=== PATIENT | male | born 1995 | race Caucasian/White ===

== ENCOUNTER 2024-05-05 18:50 | Inpatient (IN) | payer BC, MEDICAID ==
[2024-05-05] MEDS ORDERED: IBUPROFEN 600 MG TAB PO PRN (19:17)
[2024-05-05] MEDS ORDERED: MAG HYDROX/AL HYDROX/SIMETH 355 ML BOTTLE PO PRN (19:17)
[2024-05-05] MEDS ORDERED: MAGNESIUM HYDROXIDE 2,400 MG/30 ML CUP PO PRN (19:17)
[2024-05-06] MEDS: PRAZOSIN 1 MG CAP PO SCH (01:03)
[2024-05-06] MEDS: BACLOFEN 10 MG TAB PO SCH (01:03)
[2024-05-06] MEDS: GABAPENTIN 300 MG CAP PO SCH (01:03)
[2024-05-06] MEDS: traZODone HCL 100 MG TAB PO SCH (01:04)
[2024-05-06] MEDS: TEMAZEPAM 15 MG CAP PO SCH (01:04)
[2024-05-06 09:03] LABS: Basophils % (A) 0 %; Eosinophils % (A) 1 %; HCT 51.6 % (39.0-53.0); HGB 16.8 gm/dL (13.0-17.5); Lymphocytes # (A) 2.1 k/uL (1.0-4.8); Lymphocytes % (A) 26 %; MCH 31.9 pg (25.0-35.0); MCHC 32.4 g/dL (31.0-37.0); MCV 98.2 fL (80.0-100.0); Mean Platelet Volume 7.4; Monocytes # (A) 0.9 k/uL (0-1.0); Monocytes % (A) 11 %; Neutrophils # (A) 4.9 k/uL (1.3-7.7); Neutrophils % (A) 59 %; Platelet Count 250 k/uL (150-450); RBC 5.26 m/uL (4.30-5.90); RDW 14.2 % (11.5-15.5); WBC 8.2 k/uL (3.8-10.6)
[2024-05-06] MEDS: PANTOPRAZOLE 40 MG TABLET PO SCH (09:06)
[2024-05-06] MEDS: ETODOLAC 400 MG TAB PO SCH (09:07)
[2024-05-06] MEDS: lamoTRIgine 100 MG TAB PO SCH (09:10)
[2024-05-06] MEDS: IVABRADINE HCL 7.5 MG PO SCH ×2 (09:11→18:26)
[2024-05-06] MEDS: NICOTINE 14MG/24HR PATCH TRANSDERM SCH (09:12)
[2024-05-06] MEDS: PYRIDOSTIGMINE 60 MG TAB PO SCH (09:12)
[2024-05-06] MEDS: NON FORMULARY DRUG (Lisdexamfetamine Dimesylate [Vyvanse] 60 MG Capsule) PO SCH (09:12)
[2024-05-06] MEDS: NON FORMULARY DRUG (Dextroamphetamine/Amphetamine [Adderall Xr 20 Mg Capsule] 20 MG Cap.Er PO SCH (09:12)
[2024-05-06] MEDS: METOPROLOL TARTRATE 12.5 MG TAB PO SCH (09:12)
[2024-05-06] MEDS: SERTRALINE 50 MG TAB PO SCH (09:13)
[2024-05-06 09:54] LABS: ALT 30 U/L (4-49); AST 28 U/L (17-59); African American GFR (CKD) >90 (>60 ml/min/1.73 sqM); Albumin 5.3 g/dL (3.5-5.0); Alkaline Phosphatase 62 U/L (38-126); Anion Gap 12 mmol/L; Bilirubin, Delta 0.2 mg/dL (0.0-0.2); Bilirubin,Unconjugated 0.9 mg/dL (0.0-1.1); Blood Urea Nitrogen 16 mg/dL (9-20); Calcium 9.6 mg/dL (8.4-10.2); Carbon Dioxide 29 mmol/L (22-30); Chloride 101 mmol/L (98-107); Glucose 101 mg/dL (74-99); Non-African American GFR(CKD) >90 (>60 ml/min/1.73 sqM); Sodium 142 mmol/L (137-145); Total Bilirubin 1.1 mg/dL (0.2-1.3); Total Protein 8.8 g/dL (6.3-8.2)
[2024-05-06] MEDS: LORazepam 0.5 MG TAB PO PRN (10:28)
[2024-05-06] MEDS: Acetaminophen-Codeine 300-30mg TAB PO SCH (13:01)
[2024-05-06] MEDS: METHYLPHENIDATE HCL 10 MG TAB PO SCH (13:02)
[2024-05-06] MEDS: ONDANSETRON 4 MG TAB PO PRN (17:23)
[2024-05-06 17:39] LABS: Glucose,Whole Blood 94 mg/dL (70-110)
--- NOTE | 2024-05-06 18:46 | P.MDCNMH ---
History of Present Illness H&P Date: 05/06/24 Chief Complaint: medical consultation 28 year old man with history of joint pain and POTS presented as transfer from [facility] for MDD with SI. Medicine consulted for medical management. Pt had A-team called due to episode of dizziness/lightheadedness while taking ahot shower. Apparently, patient felt he was going to pass out so he sat himself down in the shower. This has happened in the past and he typically is able to identify that he needs to sit or lay down before having a fall. Similarly, this episode, the patient was able to place himself into a sitting position without falling or hitting his head. Patient's home medication of ivabradine apparently has not been delivered to the patient while at [facility], and this medication typically helps him with his POTS. At the time of my evaluation, patient was doing well, with no symptoms of cp, palps, diaphoresis, lightheadedness, or dizziness. Patient is HDS, 130/85, HR went to a maximum of 120 as recorded by nursing, and went down without intervention to 78. CBC, BMP, LFTs, TSH, and A1c are reviewed and unremarkable. All Systems reviewed and pertinent positives and negatives noted in HPI, all other symptoms are negative Gen: in no apparent distress, resting comfortably in wheelchair Eyes: Extraocular movement intact HENT: normocephalic, atraumatic, good hearing acuity, moist mucous membranes Neck: no tracheal deviation, full range of motion Resp: good air exchange, breathing comfortably with no accessory muscle use, CVS: good distal perfusion x 4, no pitting edema MSK: no clubbing, no cyanosis, no noted contractures of extremities Skin: no noted rashes, petechiae; temperature of skin is appropriate Neuro: moving all extremities without signs of weakness, CN II-XII intact Psych: cooperative, euthymic mood, insight and judgment intact Assessment/plan: Postural orthostatic tachycardia syndrome -Recommend resumption of home metoprolol, ivabradine -Recommend providing patient an option to be seated while in the shower -Hot showers can cause significant vasodilation leading to dizziness, tachy cardia -This patient is medically stable and I do not think warrants transfer to the medical floor at this time -EKG ordered Major depressive disorder with suicidal ideation Anxiety -Care per primary team ADHD -home Adderall was substituted with ritalin per psychiatry Chronic joint pain -Resume gabapentin, Tylenol 3, baclofen -tylenol PRN was ordered by psychiatry, please limit to max of 3-4g of acetaminophen/day Thank you for this consult, please reach out if there are any other questions or concerns Past Medical History Past Medical History: GERD/Reflux Additional Past Medical History / Comment(s): Per patient, Dysautonomia, POTS, Neuropathy, Hypermobility History of Any Multi-Drug Resistant Organisms: None Reported Past Surgical History: Breast Surgery Additional Past Surgical History / Comment(s): FTM Top Surgery Past Anesthesia/Blood Transfusion Reactions: No Reported Reaction Smoking Status: Never smoker Medications and Allergies Home Medications Medication Instructions Recorded Confirmed Type Baclofen 10 mg PO TID 05/05/24 05/05/24 History Dextroamphetamine/Amphetamine 20 mg PO DAILY 05/05/24 05/05/24 History [Adderall Xr 20 mg Capsule] Diclofenac Sodium [Voltaren] 75 mg PO BID 05/05/24 05/05/24 History Eszopiclone [Lunesta] 2 mg PO HS 05/05/24 05/05/24 History Gabapentin 300 mg PO TID 05/05/24 05/05/24 History Ivabradine HCl [Corlanor] 7.5 mg PO BID 05/05/24 05/05/24 History Lisdexamfetamine Dimesylate 60 mg PO QAM 05/05/24 05/05/24 History [Vyvanse] Metoprolol Tartrate [Lopressor] 12.5 mg PO BID 05/05/24 05/05/24 History Pantoprazole Sodium [Protonix] 40 mg PO DAILY 05/05/24 05/05/24 History Prazosin [Minipress] 3 mg PO HS 05/05/24 05/05/24 History Pyridostigmine [Mestinon] 30 mg PO BID 05/05/24 05/05/24 History Sertraline HCl [Zoloft] 175 mg PO DAILY 05/05/24 05/05/24 History lamoTRIgine [LaMICtal] 150 mg PO BID 05/05/24 05/05/24 History ondansetron HCL [Ondansetron HCl] 8 mg PO BID PRN 05/05/24 05/05/24 History traZODone HCL 200 mg PO HS 05/05/24 05/05/24 History Acetaminophen-Codeine 300-30mg 1 tab PO BID 05/06/24 05/06/24 History [Tylenol w/codeine #3] LORazepam [Ativan] 0.5 mg PO TID PRN 05/06/24 05/06/24 History Allergies Allergy/AdvReac Type Severity Reaction Status Date / Time amoxicillin Allergy Rash/Hives Verified 05/05/24 23:00 methylprednisolone Allergy Anaphylaxis Verified 05/05/24 23:00 propranolol Allergy Hallucinati Verified 05/05/24 23:00 ons diltiazem [From Cardizem] AdvReac Hypotension Verified 05/05/24 23:00 Physical Exam Osteopathic Statement: *. No significant issues noted on an osteopathic structural exam other than those noted in the History and Physical/Consult. Vitals: Vital Signs Temp Pulse Resp BP Pulse Ox 05/06/24 17:30 24 05/06/24 09:19 120 H 18 130/85 05/05/24 22:58 98.1 F 84 18 131/73 99 Cranial Nerve Examination - Cranial Nerves Cranial Nerve II- Optic: Intact Cranial Nerve III- Oculomotor: Intact Cranial Nerve IV- Trochlear: Intact Cranial Nerve V- Trigeminal: Intact Cranial Nerve - Abducens: Intact Cranial Nerve VII- Facial: Intact Cranial Nerve VIII- Auditory: Intact Cranial Nerve IX- Glossopharyngeal: Intact Cranial Nerve X- Vagus: Intact Cranial Nerve XI- Accessory: Intact Cranial Nerve XII- Hypoglossal: Intact Results CBC & Chem 7: 05/06/24 08:18 05/06/24 08:18 Labs: Abnormal Lab Results - Last 24 Hours (Table) 05/06/24 Range/Units 08:18 Glucose 101 H (74-99) mg/dL Total Protein 8.8 H (6.3-8.2) g/dL Albumin 5.3 H (3.5-5.0) g/dL
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
[2024-05-06 21:01] LABS: Chol/HDL Ratio 5.61 Ratio; LDL Cholesterol,Calculated 190.1 mg/dL (0.0-131.0)
--- NOTE | 2024-05-07 14:03 | P.PN ---
Progress Note - Text Progress Note Date: 05/07/24 Interval History: Patient was seen on his bed, and was directable and agreeable to speak with wr iter in the office. Patient stated they had a really rough week, last week, and everything was just too much. After waiting over a year to see a specialist for POTS, the patient feels that it was all too much for him. He was having suicidal thoughts, no action or plan. He states at this time, he is feeling that he is back at baseline. He is not having any suicidal thoughts, and is no longer feeling depressed. He states that he is sleeping well at night. At this time patient denies any suicidal or homicidal ideations, intent or plan. Patient denies any auditory, visual hallucinations and denies any paranoia or delusions. Patient denies any side effects from the medications and has been compliant with meds. Patient was fairly focused on discharge, claims that he is "back to myself". He was however fairly guarded about the team getting in contact with his parents for a ride back home. MENTAL STATUS EXAM: General Appearance: Patient appears to be mildly overweight, wearing glasses, st ated age. Patient appears to have fair hygiene and grooming. Using a wheelchair. Behavior: Patient is seated without any agitated behavior. Speech: Patient's speech is fluent and non-pressured. Mood/Affect: Patient reports their mood is good, affect is congruent and constricted. improving Suicidality/Homicidality: Patient denies having any homicidal ideation intent or plan. Denies any suicidal ideations, intent or plan. Perceptions: Patient denies any visual hallucinations and denies any auditory hallucinations Though content/process: There is no evidence of any delusional thought content and thought process is linear and goal-directed. Focused on discharge. Memory and concentration: AOX3, grossly intact for the purposes of this session. Judgment and insight: fair IMPRESSIONS: MDD, recurrent, mild R/O Adjustment disorder R/O Borderline traits OCD ADHD PTSD Gender dysphoria PLAN: -Patient is admitted under petition/cert for transfer from [facility] to [facility] for stabilization of psychiatric symptoms and safety. Patient has signed adult voluntary form and medication consent and is placed in patient's chart. -Medications: Lamictal 150 mg BID for mood, Minipress 3 mg QHS for PTSD/nightmares, Zoloft 175 mg daily for depression/anxiety, Trazodone 200 mg QHS for sleep. Gabapentin 300mg tid for nerve pain, Restoril 15 mg QHS for sleep A short-term supply of his Corlanor 7.5 mg BID POTS medication was obtained from a local outpatient pharmacy -Ativan and Haldol PRN for agitation/aggression -NRT - not needed, nonsmoker. -SW on board for discharge planning. Encourage patient to participate in groups to work on coping skills. likely discharge tomorrow if patient is agreeable to have SW call parents and ensure safety and coordinate d/c.
[2024-05-07] MEDS: ACETAMINOPHEN TAB 325 MG TAB PO PRN (14:11)
[2024-05-07] MEDS: SENNOSIDES-DOCUSATE SODIUM 1 EACH TAB PO SCH (14:55)
[2024-05-07] MEDS: IVABRADINE HCL 7.5 MG PO SCH (14:55)
[2024-05-07] MEDS: PYRIDOSTIGMINE 60 MG TAB PO SCH (14:55)
[2024-05-07] MEDS: METOPROLOL TARTRATE 12.5 MG TAB PO SCH (14:57)
[2024-05-07] MEDS: SODIUM CHLORIDE TAB 1 GM TAB PO SCH (14:57)
[2024-05-07] MEDS ORDERED: SODIUM CHLORIDE TAB 1 GM TAB PO SCH (21:00)
[2024-05-08 06:59] VITALS: TEMP 97.9
--- NOTE | 2024-05-08 11:17 | P.DS ---
Providers Date of admission: 05/05/24 22:12 Expected date of discharge: 05/08/24 Attending physician: Gray Bolaños MD Consults: 05/05/24 19:17 Consult Physician Routine Consulting Provider: Dalia Baron Consult Reason/Comments: History and Physical, New Admission Do you want consulting provider notified?: Yes Primary care physician: Stated None - Discharge Diagnosis(es) (1) Major depressive disorder, recurrent Current Visit: Yes Status: Acute Priority: High (2) ADHD Current Visit: Yes Status: Acute Priority: Medium (3) PTSD (post-traumatic stress disorder) Current Visit: Yes Status: Acute Priority: Medium Hospital Course: Admission HPI: Admission note was completed by Dr Ewing "At around 5:30 pm this evening, patient had an episode of shortness of breath, dizziness, weakness, tachycardia, and nausea from POTS, causing him to lower himself to the ground after getting out of the shower. Nurses were alerted by another patient that patient was on the ground in the hallway and responded immediately. He did not fall or hit his head or any other body part. Vitals were taken, HR was 133. Nurses alerted me, and on my evaluation patient appeared weak, flushed in the face, was breathing deeply and attempting to catch his breath. His HR improved from 130s to 120s. He had been without his prescription Corlanor (Ivabradine) from Tuesday since this medication is non-formulary at [facility] and [facility], which our nurse messaged to the on-call medical doctor this morning but they had not seen patient yet today for his admission H&P. I asked our nurse to contact a local outpatient pharmacy to fill an emergency script of Corlanor 7.5 mg BID and a staff person was sent to that pharmacy to diamond picker the med before it closed at 6pm. Nurses also called an A-team medical alert and team arrived to evaluate patient. Medical doctor arrived to evaluate patient and determined patient did not need to go to the medical floor since his heart rate was trending down. Patient's medication arrived from the outpatient pharmacy and patient was given the nighttime dose of Corlanor. He continued to feel weak and nauseous so he missed dinner and was also provided with a wheelchair to minimize his fall risk. Patient's room was changed to closer to the nurse's station so he can be closely monitored. He was also provided with a bedside rosario to ring for the nurse if he were to feel weak or if needed to assistance to use the bathroom etc. He gradually returned to baseline after about ~1.5 hours. I assessed patient after his POTS episode had resolved. He reports frustration that his medication was not formulary but is thankful that steps were taken tonight by our staff to obtain his medication from an outpatient pharmacy.Patient had presented to our inpatient unit as a transfer from [facility] due to suicidal ideation. He reports he has had passive suicidal thoughts for the last year, and reports these have worsened to for frequent suicidal thoughts and suicidal thoughts with plan but no intent more intensely on Tuesday. He went to see his want ad supervisor at [facility] who helped him get to the ER for a psychiatric evaluation for suicidal ideation with plan to overdose on Lunesta, benzos and blood pressure meds. He went to see a POTS specialist in [place] and they recommended a new therapy of mast cell activation and plans to start that in the near future. He felt this medical appointment in [place] was stressful, going there, not ge tting definite answers, it felt frustrating. He reports his [employer] INTERN recently increased his Zoloft from 150 mg daily to 175 mg daily about one week ago. When asked about increasing the Zoloft to 200 mg daily for today, he states he doesn't want to change his meds because his body is so sensitive to medication adjustments due to the POTS and his other comorbidities. He feels the Zoloft helps his PTSD and anxiety and depression, as compared to other psychiatric meds he has tried. He denies depressed mood today, reports he was feeling depressed yesterday and the day before. Patient denies any suicidal or homicidal ideation, intent or plan, at this time but was considering suicide plans on the day he went to the [facility] ER. At this time patient denies any auditory or visual hallucinations. Patient denies any flight of ideas racing thoughts and increased in goal directed behavior. Patient denies any drug or alcohol use. He prefers to not change his home medications at this time. He states the week he had a mental health crisis and now this crisis has resolved between Tuesday when he presented to the ER at [facility] and now. " Hospital course: Upon admission to the unit patient was directable and agreeable to commence treatment and signed adult voluntary form. Patient got along well with other patients on the unit and followed unit protocol. Patient was compliant with the medications and denied any side effects throughout hospital course. Patient was started on home dose of Lamictal 150 mg twice daily for mood stabilization, Minipress 3 mg nightly for PTSD/nightmares, Zoloft 175 mg daily for mood/anxiety, trazodone 200 mg nightly for sleep/mood, resumed on home dose of gabapentin 300 mg 3 times daily for nerve pain.. Patient spoke of their stressors and engaged in therapy both group and individual. Patient was also seen by medical team for history and physical exam. Throughout the course of the hospitalization patient gradually improved with regards to mood, anxiety, suicidal thoughts, sleep and returned back to their baseline level of functioning. On the day of discharge patient denied any suicidal or homicidal ideations intent or plan denied any auditory or visual hallucinations. Patient endorsed wanting to live for their health and future. The patient denied any access to guns or weapons. Patient denied any paranoia and did not endorse any delusions. Patient does not have a significant history of substance abuse and was counseled on abstaining from all substances including alcohol and marijuana. Patient was also counseled on the medications and need for regular compliance and was encouraged to follow-up with their outpatient appointment for mental health and also for primary care. Prior to discharge SW will reach out to patients friend who he will be staying with to answer any questions and ensure safety upon discharge. Mental status exam: General Appearance: Patient appears to be overweight, wearing glasses, stated age is alert, pleasant, and cooperative. Patient is in no acute distress and has improved hygiene and grooming Behavior: Patient is calmly seated without any agitated behavior. Speech: Patient's speech is fluent and nonpressured. Mood/Affect: Patient reports their mood is "good", affect is congruent and euthymic. Suicidality/Homicidality: Patient denies having any suicidal or homicidal ideation intent or plan. Perceptions: Patient denies any auditory or visual hallucinations. Though content/process: There is no evidence of any delusional thought content and thought process is linear and goal-directed. More future oriented Memory and concentration: AOX3, grossly intact for the purposes of this session. Can spell "WORLD" backwards correctly. Judgment and insight: improved with guarded prognosis Impression: MDD, recurrent R/O Borderline traits ADHD PTSD Plan: -Continue with discharge today as patient has improved and stabilized psychiatrically and is not currently an imminent threat to themselves and/or others. Patient will remain at chronically elevated risk for harm to self and/or others due to their impulsivity. -Continue medications: Lamictal 150 mg twice daily for mood stabilization, Minipress 3 mg nightly for PTSD/nightmares, Zoloft 175 mg daily for mood/anxiety, trazodone 200 mg nightly for sleep/mood, gabapentin 300 mg 3 times daily for nerve pain. -Patient was counseled on the need for medication compliance and appropriate follow-up at mental health and also primary care for medical issues. Patient verbalized understanding and agreed. -Social work to help coordinate patient's discharge today, patient states that they will be able to stay with a friend and SW to call and confirm this and also arrange for pi\\ck up. social work also to arrange for patients follow up appointments for psychiatric care along with follow up with primary care provider. -Patient counseled on abstaining from recreational drugs and marijuana and alcohol. Was informed/educated on the adverse effects on their physical and mental health. Patient verbally agreed and understood. -Patient was instructed to return to the hospital or seek immediate medical care if their psychiatric or medical symptoms do worsen or reoccur. Allergies Allergy/AdvReac Type Severity Reaction Status Date / Time amoxicillin Allergy Rash/Hives Verified 05/07/24 15:27 methylprednisolone Allergy Anaphylaxis Verified 05/07/24 15:27 propranolol Allergy Hallucinati Verified 05/07/24 15:27 ons diltiazem from Cardizem AdvReac Hypotension Verified 05/07/24 15:27 Laboratory Results WBC 8.2 k/uL (3.8-10.6) 05/06/24 08:18 RBC 5.26 m/uL (4.30-5.90) 05/06/24 08:18 Hgb 16.8 gm/dL (13.0-17.5) 05/06/24 08:18 Hct 51.6 % (39.0-53.0) 05/06/24 08:18 MCV 98.2 fL (80.0-100.0) 05/06/24 08:18 MCH 31.9 pg (25.0-35.0) 05/06/24 08:18 MCHC 32.4 g/dL (31.0-37.0) 05/06/24 08:18 RDW 14.2 % (11.5-15.5) 05/06/24 08:18 Plt Count 250 k/uL (150-450) 05/06/24 08:18 MPV 7.4 05/06/24 08:18 Neutrophils % 59 % 05/06/24 08:18 Lymphocytes % 26 % 05/06/24 08:18 Monocytes % 11 % 05/06/24 08:18 Eosinophils % 1 % 05/06/24 08:18 Basophils % 0 % 05/06/24 08:18 Neutrophils # 4.9 k/uL (1.3-7.7) 05/06/24 08:18 Lymphocytes # 2.1 k/uL (1.0-4.8) 05/06/24 08:18 Monocytes # 0.9 k/uL (0-1.0) 05/06/24 08:18 Eosinophils # 0.0 k/uL (0-0.7) 05/06/24 08:18 Basophils # 0.0 k/uL (0-0.2) 05/06/24 08:18 Sodium 142 mmol/L (137-145) 05/06/24 08:18 Potassium 4.0 mmol/L (3.5-5.1) 05/06/24 08:18 Chloride 101 mmol/L (98-107) 05/06/24 08:18 Carbon Dioxide 29 mmol/L (22-30) 05/06/24 08:18 Anion Gap 12 mmol/L 05/06/24 08:18 BUN 16 mg/dL (9-20) 05/06/24 08:18 Creatinine 0.95 mg/dL (0.66-1.25) 05/06/24 08:18 Est GFR (CKD-EPI)AfAm >90 (>60 ml/min/1.73 sqM) 05/06/24 08:18 Est GFR (CKD-EPI)NonAf >90 (>60 ml/min/1.73 sqM) 05/06/24 08:18 Glucose 101 mg/dL (74-99) H 05/06/24 08:18 POC Glucose (mg/dL) 94 mg/dL (70-110) 05/06/24 17:30 POC Glu Subassembler ID Curtis Jaramillo 05/06/24 17:[address] Glu mg/dL 108 mg/dL 05/06/24 08:18 Hemoglobin A1c 5.4 % (<=6.0) 05/06/24 08:18 Calcium 9.6 mg/dL (8.4-10.2) 05/06/24 08:18 Total Bilirubin 1.1 mg/dL (0.2-1.3) 05/06/24 08:18 Conjugated Bilirubin 0.0 mg/dL (0.0-0.3) 05/06/24 08:18 Unconjugated Bilirubin 0.9 mg/dL (0.0-1.1) 05/06/24 08:18 Delta Bilirubin 0.2 mg/dL (0.0-0.2) 05/06/24 08:18 AST 28 U/L (17-59) 05/06/24 08:18 ALT 30 U/L (4-49) 05/06/24 08:18 Alkaline Phosphatase 62 U/L (38-126) 05/06/24 08:18 Total Protein 8.8 g/dL (6.3-8.2) H 05/06/24 08:18 Albumin 5.3 g/dL (3.5-5.0) H 05/06/24 08:18 Triglycerides 130.00 mg/dL (0.00-149.00) 05/06/24 08:18 Cholesterol 263.00 mg/dL (0.00-200.00) H 05/06/24 08:18 LDL Cholesterol, Calc 190.1 mg/dL (0.0-131.0) H 05/06/24 08:18 VLDL Cholesterol, Calc 26.00 mg/dL (5.00-40.00) 05/06/24 08:18 HDL Cholesterol 46.90 mg/dL (40.00-60.00) 05/06/24 08:18 Cholesterol/HDL Ratio 5.61 Ratio 05/06/24 08:18 TSH 2.520 mIU/L (0.465-4.680) 05/06/24 08:18 Vital Signs Temp 97.9 F 05/08/24 06:59 Pulse 127 H 11/05/24 08:00 Resp 16 05/08/24 06:59 BP 118/72 05/08/24 06:59 Pulse Ox 96 05/08/24 06:59 FiO2 Patient Condition at Discharge: Stable Plan - Discharge Summary Discharge Rx Participant: No New Discharge Prescriptions: New Sennosides-Docusate Sodium [Senokot-S] 1 each PO DAILY 30 Days #30 tab Sertraline [Zoloft] 175 mg PO DAILY 14 Days #50 tab Prazosin [Minipress] 3 mg PO HS 14 Days #42 cap Ibuprofen [Motrin] 600 mg PO Q6HR PRN tab PRN Reason: Moderate Pain (Scale 4 To 6) Continue Ivabradine HCl [Corlanor] 7.5 mg PO BID Metoprolol Tartrate [Lopressor] 12.5 mg PO BID Gabapentin 300 mg PO TID Baclofen 10 mg PO TID Diclofenac Sodium [Voltaren] 75 mg PO BID Pantoprazole Sodium [Protonix] 40 mg PO DAILY Sodium Chloride Tab 2 gm PO BID Cyanocobalamin [Vitamin B-12 Injection] 1,000 mcg SQ Q30D Cetirizine HCl [Zyrtec] 10 mg PO DAILY traZODone HCL 200 mg PO HS 14 Days #28 tab Pyridostigmine [Mestinon] 30 mg PO BID lamoTRIgine [LaMICtal] 150 mg PO BID Acetaminophen-Codeine 300-30mg [Tylenol w/codeine #3] 1 tab PO BID Testosterone Cypionate [Depo-Testosterone] 100 mg IM FR Ergocalciferol (Vitamin D2) [Drisdol (50,000 Iu)] 1,250 mcg PO WE Discontinued Lisdexamfetamine Dimesylate [Vyvanse] 60 mg PO DAILY Sertraline [Zoloft] 100 mg PO DAILY Sertraline [Zoloft] 25 mg PO DAILY Dextroamphetamine/Amphetamine [Adderall] 20 mg PO DAILY@1500 Sertraline HCl [Zoloft] 50 mg PO DAILY Prazosin [Minipress] 1 mg PO HS Eszopiclone [Lunesta] 2 mg PO HS LORazepam [Ativan] 0.5 mg PO TID PRN PRN Reason: Anxiety Prazosin HCl [Minipress] 2 mg PO HS Discharge Medication List Baclofen 10 mg PO TID 05/05/24 [History] Diclofenac Sodium [Voltaren] 75 mg PO BID 05/05/24 [History] Gabapentin 300 mg PO TID 05/05/24 [History] Ivabradine HCl [Corlanor] 7.5 mg PO BID 05/05/24 [History] Metoprolol Tartrate [Lopressor] 12.5 mg PO BID 05/05/24 [History] Pantoprazole Sodium [Protonix] 40 mg PO DAILY 05/05/24 [History] Pyridostigmine [Mestinon] 30 mg PO BID 05/05/24 [History] lamoTRIgine [LaMICtal] 150 mg PO BID 05/05/24 [History] Acetaminophen-Codeine 300-30mg [Tylenol w/codeine #3] 1 tab PO BID 05/06/24 [History] Cetirizine HCl [Zyrtec] 10 mg PO DAILY 05/07/24 [History] Cyanocobalamin [Vitamin B-12 Injection] 1,000 mcg SQ Q30D 05/07/24 [History] Ergocalciferol (Vitamin D2) [Drisdol (50,000 Iu)] 1,250 mcg PO WE 05/07/24 [History] Sodium Chloride Tab 2 gm PO BID 05/07/24 [History] Testosterone Cypionate [Depo-Testosterone] 100 mg IM FR 05/07/24 [History] Ibuprofen [Motrin] 600 mg PO Q6HR PRN tab 05/08/24 [Rx] Prazosin [Minipress] 3 mg PO HS 14 Days #42 cap 05/08/24 [Rx] Sennosides-Docusate Sodium [Senokot-S] 1 each PO DAILY 30 Days #30 tab 05/08/24 [Rx] Sertraline [Zoloft] 175 mg PO DAILY 14 Days #50 tab 05/08/24 [Rx] traZODone HCL 200 mg PO HS 14 Days #28 tab 05/08/24 [Rx] Follow up Appointment(s)/Referral(s): [facility] [Other] - 05/18/24 2:00 pm Activity/Diet/Wound Care/Special Instructions: Avoid the use of street drugs and alcohol. Take all medications as prescribed. When you are in need of refills on your medications, please contact your medical provider and/or outpatient psychiatrist/provider to have this done. Please go to your scheduled outpatient appointment for aftercare treatment. If symptoms return or become worse, call the crisis line at and/or go to the nearest emergency room for evaluation. National Suicide Hotline 988 Discharge Disposition: HOME SELF-CARE
[2024-05-08] MEDS: LORazepam 0.5 MG TAB PO STA (12:46)
[2024-05-08 15:28] VITALS: BP 106/69; PULSE 127; RESP 24
[2024-05-08 15:55] VITALS: BMI 41.8
== END 2024-05-08 15:57 | disposition home or self-care (01) | DRG 885 ==
LOC: 3MHU 22:12
PROVIDERS: ADMIT Psychiatry & Neurology Psychiatry; ATTEND Psychiatry & Neurology Psychiatry
DX: F33.0 Major depressive disorder, recurrent, mild (principal); R45.851 Suicidal ideations; F41.9 Anxiety disorder, unspecified; F42.9 Obsessive-compulsive disorder, unspecified; F43.10 Post-traumatic stress disorder, unspecified; F64.0 Transsexualism; M79.18 Myalgia, other site; R00.0 Tachycardia, unspecified; F90.9 Attention-deficit hyperactivity disorder, unspecified type; G89.29 Other chronic pain; G90.A Postural orthostatic tachycardia syndrome [POTS]; Y09 Assault by unspecified means; Z62.810 Personal history of physical and sexual abuse in childhood; Z79.899 Other long term (current) drug therapy; Z91.51 Personal history of suicidal behavior; Z91.81 History of falling; Z88.1 Allergy status to other antibiotic agents; Z88.8 Allergy status to other drugs, medicaments and biological substances
CPT/HCPCS: 80053; 80061; 82248; 83036; 84443; 85025

== ENCOUNTER 2024-05-08 15:26 | Observation (INO) | payer BC, OTHER ==
[2024-05-08] MEDS ORDERED: ONDANSETRON 4 MG/2 ML VIAL IVP PRN (15:48)
[2024-05-08] MEDS ORDERED: NALOXONE 0.4 MG/ML 1 ML VIAL IV PRN (15:48)
[2024-05-08] MEDS ORDERED: ACETAMINOPHEN TAB 325 MG TAB PO PRN (15:48)
[2024-05-08 16:32] LABS: Basophils % (A) 0 %; Eosinophils % (A) 0 %; HCT 46.8 % (39.0-53.0); HGB 14.8 gm/dL (13.0-17.5); Lymphocytes # (A) 1.8 k/uL (1.0-4.8); Lymphocytes % (A) 17 %; MCHC 31.6 g/dL (31.0-37.0); MCV 98.1 fL (80.0-100.0); Monocytes % (A) 9 %; Neutrophils # (A) 7.2 k/uL (1.3-7.7); Neutrophils % (A) 70 %; Platelet Count 247 k/uL (150-450); RBC 4.76 m/uL (4.30-5.90); RDW 13.6 % (11.5-15.5); WBC 10.3 k/uL (3.8-10.6)
[2024-05-08 16:41] LABS: African American GFR (CKD) >90 (>60 ml/min/1.73 sqM); Anion Gap 7 mmol/L; Blood Urea Nitrogen 12 mg/dL (9-20); Calcium 9.3 mg/dL (8.4-10.2); Carbon Dioxide 29 mmol/L (22-30); Chloride 104 mmol/L (98-107); Glucose 76 mg/dL (74-99); Magnesium 2.2 mg/dL (1.6-2.3); Non-African American GFR(CKD) >90 (>60 ml/min/1.73 sqM); Phosphorus 3.1 mg/dL (2.5-4.5); Potassium 4.1 mmol/L (3.5-5.1); Sodium 140 mmol/L (137-145)
--- NOTE | 2024-05-08 17:50 | P.HPIM ---
History of Present Illness H&P Date: 05/08/24 Chief Complaint: Tachycardia 28-year-old male with medical history of major depressive disorder with suicidal ideation who was recently hospitalized for his mental health. Patient was transferred here from the mental health floor due to concerns over tachycardia. I saw and evaluated this patient on the medical floor, at which time he had no complaints. Upon evaluation, patient is hemodynamically stable, no longer tachycardic with heart rates in the 70s. Patient stat labs demonstrated normal CBC and normal basic metabolic panel. His all medications were resumed. Cardiology was consulted. All Systems reviewed and pertinent positives and negatives noted in HPI, all other symptoms are negative Gen: In NAD, non-toxic HEENT: normocephalic, atraumatic, hearing acuity is intant, mucous membranes moist CVS: perfusing all extremities well, no pitting edema, Respiratory: symmetric chest expansion, no accessory muscle use, GI: soft, NTTP, ND, : no suprapubic tenderness, no CVA tenderness MSK/Derm: no rashes, cyanosis Neuro: CN II-XII intact, no motor weakness, Psych: cooperative, euthymic mood, judgment and insight is intact Labs and imaging as above Assessment/plan: Tachycardia, possibly POTS -Cardiology consult -Telemetry -EKG -IV fluids -Resume home meds Major depressive disorder with suicidal ideation -Psychiatry consulted, apparently patient was discharged from their service as he was deemed stable from mental health standpoint Patient is full code Past Medical History Past Medical History: GERD/Reflux Additional Past Medical History / Comment(s): Per patient, Dysautonomia, POTS, Neuropathy, Hypermobility, heart murmur, inappropriate sinus tachy History of Any Multi-Drug Resistant Organisms: None Reported Past Surgical History: Breast Surgery Additional Past Surgical History / Comment(s): FTM Top Surgery Past Anesthesia/Blood Transfusion Reactions: No Reported Reaction Smoking Status: Never smoker - Past Family History Mother Family Medical History: No Reported History Medications and Allergies Home Medications Medication Instructions Recorded Confirmed Type Baclofen 10 mg PO TID 05/05/24 05/07/24 History Diclofenac Sodium [Voltaren] 75 mg PO BID 05/05/24 05/07/24 History Gabapentin 300 mg PO TID 05/05/24 05/07/24 History Ivabradine HCl [Corlanor] 7.5 mg PO BID 05/05/24 05/07/24 History Metoprolol Tartrate [Lopressor] 12.5 mg PO BID 05/05/24 05/07/24 History Pantoprazole Sodium [Protonix] 40 mg PO DAILY 05/05/24 05/07/24 History Pyridostigmine [Mestinon] 30 mg PO BID 05/05/24 05/07/24 History lamoTRIgine [LaMICtal] 150 mg PO BID 05/05/24 05/07/24 History Acetaminophen-Codeine 300-30mg 1 tab PO BID 05/06/24 05/07/24 History [Tylenol w/codeine #3] Cetirizine HCl [Zyrtec] 10 mg PO DAILY 05/07/24 05/07/24 History Cyanocobalamin [Vitamin B-12 1,000 mcg SQ Q30D 05/07/24 05/07/24 History Injection] Ergocalciferol (Vitamin D2) 1,250 mcg PO WE 05/07/24 05/07/24 History [Drisdol (50,000 Iu)] Sodium Chloride Tab 2 gm PO BID 05/07/24 05/07/24 History Testosterone Cypionate 100 mg IM FR 05/07/24 05/07/24 History [Depo-Testosterone] Ibuprofen [Motrin] 600 mg PO Q6HR PRN tab 05/08/24 Rx Prazosin [Minipress] 3 mg PO HS 14 Days #42 cap 05/08/24 Rx Sennosides-Docusate Sodium 1 each PO DAILY 30 Days #30 tab 05/08/24 Rx [Senokot-S] Sertraline [Zoloft] 175 mg PO DAILY 14 Days #50 tab 05/08/24 Rx traZODone HCL 200 mg PO HS 14 Days #28 tab 05/08/24 Rx Allergies Allergy/AdvReac Type Severity Reaction Status Date / Time amoxicillin Allergy Rash/Hives Verified 05/07/24 15:27 methylprednisolone Allergy Anaphylaxis Verified 05/07/24 15:27 propranolol Allergy Hallucinati Verified 05/07/24 15:27 ons diltiazem [From Cardizem] AdvReac Hypotension Verified 05/07/24 15:27 Physical Exam Osteopathic Statement: *. No significant issues noted on an osteopathic structural exam other than those noted in the History and Physical/Consult. Vitals: Intake and Output 05/08/24 05/08/24 05/08/24 06:59 14:59 22:59 Other: Weight 115.666 kg Results CBC & Chem 7: 05/08/24 16:22 05/08/24 16:22
[2024-05-08] MEDS: BACLOFEN 10 MG TAB PO SCH (18:10)
[2024-05-08] MEDS: GABAPENTIN 300 MG CAP PO SCH (18:10)
[2024-05-08] MEDS: SODIUM CHLORIDE 0.9% 1,000 ML IV SCH (18:12)
[2024-05-08 19:15] LABS: Appearance,Urine Clear (Clear); Bilirubin,Urine Negative (Negative); Blood,Urine Negative (Negative); Color,Urine Colorless; Glucose,Urine (UA) Negative (Negative); Ketones,Urine Negative (Negative); Leukocyte Esterase,Urine Negative (Negative); Nitrite,Urine Negative (Negative); PH, Urine 6.5 (5.0-8.0); Protein,Urine Negative (Negative); Specific Gravity,Urine 1.006 (1.001-1.035); Urobilinogen,Urine <2.0 mg/dL (<2.0)
[2024-05-08 20:06] VITALS: BP 144/76; PULSE 73; RESP 17; TEMP 98.3
[2024-05-08] MEDS ORDERED: traZODone HCL 100 MG TAB PO SCH (21:00)
[2024-05-08] MEDS ORDERED: ETODOLAC 400 MG TAB PO SCH (21:00)
[2024-05-08] MEDS ORDERED: Acetaminophen-Codeine 300-30mg TAB PO SCH (21:00)
[2024-05-08] MEDS ORDERED: lamoTRIgine 100 MG TAB PO SCH (21:00)
[2024-05-08] MEDS ORDERED: PRAZOSIN 1 MG CAP PO SCH (21:00)
--- NOTE | 2024-05-09 07:39 | P.DS ---
Providers Date of admission: 05/08/24 15:50 Expected date of discharge: 05/09/24 Attending physician: Fabiola Mancera MD Consults: 05/08/24 15:50 Consult Physician Routine Consulting Provider: Gray Bolaños Consult Reason/Comments: MDD with SI Do you want consulting provider notified?: Yes Consult Physician Routine Consulting Provider: Saran Alberto Consult Reason/Comments: ? POTS history and medication regiment Do you want consulting provider notified?: Yes Primary care physician: Stated None Hospital Course: Patient left AMA prior to being seen. Plan - Discharge Summary New Discharge Prescriptions: No Action Ivabradine HCl [Corlanor] 7.5 mg PO BID Metoprolol Tartrate [Lopressor] 12.5 mg PO BID Gabapentin 300 mg PO TID Baclofen 10 mg PO TID Diclofenac Sodium [Voltaren] 75 mg PO BID Pantoprazole Sodium [Protonix] 40 mg PO DAILY Sodium Chloride Tab 2 gm PO BID Cyanocobalamin [Vitamin B-12 Injection] 1,000 mcg SQ Q30D Cetirizine HCl [Zyrtec] 10 mg PO DAILY Sennosides-Docusate Sodium [Senokot-S] 1 each PO DAILY 30 Days #30 tab Sertraline [Zoloft] 175 mg PO DAILY 14 Days #50 tab traZODone HCL 200 mg PO HS 14 Days #28 tab Pyridostigmine [Mestinon] 30 mg PO BID lamoTRIgine [LaMICtal] 150 mg PO BID Acetaminophen-Codeine 300-30mg [Tylenol w/codeine #3] 1 tab PO BID Testosterone Cypionate [Depo-Testosterone] 100 mg IM FR Ergocalciferol (Vitamin D2) [Drisdol (50,000 Iu)] 1,250 mcg PO WE Prazosin [Minipress] 3 mg PO HS 14 Days #42 cap Ibuprofen [Motrin] 600 mg PO Q6HR PRN tab PRN Reason: Moderate Pain (Scale 4 To 6) Discharge Medication List Baclofen 10 mg PO TID 05/05/24 [History] Diclofenac Sodium [Voltaren] 75 mg PO BID 05/05/24 [History] Gabapentin 300 mg PO TID 05/05/24 [History] Ivabradine HCl [Corlanor] 7.5 mg PO BID 05/05/24 [History] Metoprolol Tartrate [Lopressor] 12.5 mg PO BID 05/05/24 [History] Pantoprazole Sodium [Protonix] 40 mg PO DAILY 05/05/24 [History] Pyridostigmine [Mestinon] 30 mg PO BID 05/05/24 [History] lamoTRIgine [LaMICtal] 150 mg PO BID 05/05/24 [History] Acetaminophen-Codeine 300-30mg [Tylenol w/codeine #3] 1 tab PO BID 05/06/24 [History] Cetirizine HCl [Zyrtec] 10 mg PO DAILY 05/07/24 [History] Cyanocobalamin [Vitamin B-12 Injection] 1,000 mcg SQ Q30D 05/07/24 [History] Ergocalciferol (Vitamin D2) [Drisdol (50,000 Iu)] 1,250 mcg PO WE 05/07/24 [History] Sodium Chloride Tab 2 gm PO BID 05/07/24 [History] Testosterone Cypionate [Depo-Testosterone] 100 mg IM FR 05/07/24 [History] Ibuprofen [Motrin] 600 mg PO Q6HR PRN tab 05/08/24 [Rx] Prazosin [Minipress] 3 mg PO HS 14 Days #42 cap 05/08/24 [Rx] Sennosides-Docusate Sodium [Senokot-S] 1 each PO DAILY 30 Days #30 tab 05/08/24 [Rx] Sertraline [Zoloft] 175 mg PO DAILY 14 Days #50 tab 05/08/24 [Rx] traZODone HCL 200 mg PO HS 14 Days #28 tab 05/08/24 [Rx] Discharge Disposition: LEFT AGAINST MEDICAL ADVICE
[2024-05-09] MEDS ORDERED: METOPROLOL TARTRATE 12.5 MG TAB PO SCH (08:00)
[2024-05-09] MEDS ORDERED: PYRIDOSTIGMINE 60 MG TAB PO SCH (08:00)
[2024-05-09] MEDS ORDERED: IVABRADINE HCL 7.5 MG PO SCH (08:00)
[2024-05-09] MEDS ORDERED: LORATADINE 10 MG TAB PO SCH (09:00)
[2024-05-09] MEDS ORDERED: SENNOSIDES-DOCUSATE SODIUM 1 EACH TAB PO SCH (09:00)
[2024-05-09] MEDS ORDERED: PANTOPRAZOLE 40 MG TABLET PO SCH (09:00)
[2024-05-09] MEDS ORDERED: ERGOCALCIFEROL 1,250 MCG (50,000 IU) CAPSULE PO SCH (15:51)
== END 2024-05-08 22:57 | disposition left against medical advice (07) ==
LOC: 4SSUR 15:50
PROVIDERS: ADMIT Internal Medicine; ATTEND Internal Medicine
DX: R00.0 Tachycardia, unspecified (principal); G90.A Postural orthostatic tachycardia syndrome [POTS]; F32.9 Major depressive disorder, single episode, unspecified; R45.851 Suicidal ideations; K21.9 Gastro-esophageal reflux disease without esophagitis; Z53.29 Procedure and treatment not carried out because of patient's decision for other reasons; Z79.899 Other long term (current) drug therapy; Z88.0 Allergy status to penicillin
CPT/HCPCS: 80048; 83735; 84100; 85025; 81003; G0378; G0379